=== PATIENT | male | born 1960 | race Caucasian/White ===

== ENCOUNTER 2016-08-18 19:43 | Inpatient (IN) ==
[2016-08-18] MEDS ORDERED: 0.9 % Sodium Chloride 1,000 ML IV ONE (22:17)
[2016-08-18] MEDS ORDERED: Vancomycin 1,000 MG in D5% in Water 250 ML IVPB ONE (22:18)
[2016-08-18 22:41] LABS: Basophils # 0.1 K/mcL (0.0-0.2); Basophils % 1.1 %; Eosinophils # 0.3 K/mcL (0.0-0.6); Eosinophils % 4.8 %; Hematocrit 40.7 % (37.5-50.1); Hemoglobin 13.6 g/dL (12.9-16.9); Immature Granulocytes % 0.2 % (0-4); Lymphocytes # 2.2 K/mcL (0.6-4.6); Mean Corpuscular HGB Conc 33.4 g/dL (31.6-35.5); Mean Corpuscular Hemoglobin 28.3 pg (28.0-33.3); Mean Corpuscular Volume 84.6 fL (83.0-100.0); Mean Platelet Volume 12.5 fL (9.4-12.4); Monocytes # 0.6 K/mcL (0.0-1.3); Monocytes % 9.7 %; Neutrophils # 2.6 K/mcL (1.6-8.9); Platelet Count 162 K/mcL (140-400); Red Blood Count 4.81 M/mcL (4.19-5.50); Segmented Neutrophils % 46.2 %
[2016-08-18 22:53] LABS: BUN/Creatinine Ratio 30 (6-26); Blood Urea Nitrogen 26 mg/dL (8-26); Calcium 9.5 mg/dL (8.6-10.8); Carbon Dioxide 19 mEq/L (19-29); Chloride 103 mEq/L (98-109); Glucose 252 mg/dL (70-99); Osmolality,Calculated 293 (280-300); Potassium 4.7 mEq/L (3.5-4.5); Sodium 135 mEq/L (136-145); eGFR For African Americans > 60 (> 60); eGFR For Non-African Americans > 60 (> 60)
--- NOTE | 2016-08-18 23:05 | Emergency Department Note ---
Disposition Clinical Impression: Hyperglycemia, Gangrene Disposition: Admitted As Inpatient Condition: Fair Referrals: Eric Feliciano CNP [Primary Care Provider] - Forms: ED Satisfaction Letter General Adult HPI - General Chief complaint: ED Recheck/Abnormal Lab/Rx Stated complaint: sent by Dr. Potts Time Seen by Provider: 08/18/16 20:26 Source: patient Limitations: no limitations Nursing Notes Reviewed: Yes Vital Signs Reviewed: Yes - History of Present Illness HPI Narrative: Patient states he was called by Dr. Jamison around 5:30 and told to go to the emergency room for admission secondary to his gangrenous left middle digit as well as elevated glucose. Patient has undergone multiple visits to multiple emergency departments over the course of his initial injury along with progression of disease. Patient initially saw Dr. Jamison at the beginning of August where he had some debridement of his wound done. The goal has been to try to salvage as much of the finger as possible. Patient's finger continues to decompensate. Patient was supposed to get possible surgery however she has been unable to get control of his blood sugars. Patient has been prescribed metformin and injectable insulin without resolution. At this point the patient' s finger has gone from salvageable to needing amputation. Dr. Jamison wants to perform the same dictation sooner rather than later and believes admission for uncontrolled hyperglycemia is necessary as well as admission for gangrene and need for surgery. Patient has no other current complaints at this time. Patient states symptoms have worsened over the last several days but is relatively stable today compared to yesterday. Patient's diabetic history extends back to 2000 where he was told he was a diabetic but lost 80 pounds and no longer required medications or treatments. Patient had another episode proximally 5 years ago related to an injury that allowed him to not do physical labor and he began eating more causing elevated sugars. Other than this the patient has not had issues. Initial injury came all working with his hands in July. Patient was given outpatient antibiotics which initially prompted resolution until prior to New Year's when symptoms acutely began worsening. This is blood in progression to the point that of today where his left digit is acutely swollen with mild erythema and necrotic middle and distal phalanges on the palmar side. Pain Scale: 2 - Related Data Home Medications Medication Instructions Recorded Confirmed Atorvastatin Calcium [Lipitor] 20 mg PO DAILY 08/18/16 08/18/16 Cephalexin [Keflex] 500 mg PO QID 08/18/16 08/18/16 Insulin DETEMIR [Levemir Flextouch] 10 unit SQ HS 08/18/16 08/18/16 Lisinopril [Zestril] 5 mg PO DAILY 08/18/16 08/18/16 Metformin HCl [Glucophage] 1,000 mg PO BID 08/18/16 08/18/16 Sulfamethoxazole/Trimeth DS 2 each PO BID 08/18/16 08/18/16 [Bactrim DS] Allergies Allergy/AdvReac Type Severity Reaction Status Date / Time No Known Allergies Allergy Verified 08/18/16 20:01 All systems ED: reviewed and negative except as stated. Constitutional: Denies: fever, chills Eyes: Denies: eye pain ENT ED: Denies: ear pain Cardiovascular: Denies: chest pain Respiratory: Denies: cough, dyspnea Gastrointestinal: Denies: abdominal pain Genitourinary: Denies: urgency, dysuria Musculoskeletal: Reports: joint swelling Integumentary: Reports: lesions. Denies: rash Neurological: Denies: headache Psychiatric: Denies: anxiety, depression Endocrine: Denies: fatigue Hematological/Lymphatic: Denies: easy bleeding Allergic/Immunologic: Denies: facial swelling Past Medical History - Past Medical History Medical history: Reports: diabetes, kidney stones Psychiatric history: Reports: no psych history - Social History Smoking Status: Never smoker Smokeless Tobacco Status: No Alcohol use: Reports: none Drug use: Reports: none Physical Exam - General Limitations: no limitations General appearance: alert, in no apparent distress - Head Head exam: atraumatic, normocephalic - Eye Eye exam: Present: normal appearance - ENT ENT exam: normal exam, normal oropharynx - Neck Neck exam: Present: normal inspection - Chest Chest inspection: Present: normal inspection - Respiratory Respiratory exam: Present: normal lung sounds bilaterally. Absent: respiratory distress - Cardiovascular Cardiovascular exam: Present: regular rate, normal rhythm - Abdominal Exam Abdominal exam: Present: soft, Non-Tender - Extremities Exam Extremities exam: Present: other (Left hand with swelling of the third digit associated with mild erythema and tenderness to palpation over the MCP and necrosis of the middle and distal palmar aspect.) - Back Exam Back exam: Present: normal inspection - Neurological Exam Neurological exam: Present: alert, oriented X3 - Psychiatric Psychiatric exam: Present: normal affect, normal mood Course - Consultations Consultation #1: Discussed with Dr. Jamison. Patient has failed multiple attempts at outpatient control of diabetes with worsening of his left third digit likely requiring a medication at this point. Consultation #2: Discussed with hospitalist. Dr. Cook. Requests 10 units of subcutaneous insulin as well as x-ray of the left hand prior to admission. Patient accepted for admission. Vital Signs Temperature 98.5 F 08/18/16 20:01 Pulse Rate 112 08/18/16 20:01 Respiratory Rate 18 08/18/16 20:01 Blood Pressure 119/77 08/18/16 20:01 O2 Sat by Pulse Oximetry 98 08/18/16 20:01 Temperature 98.5 F 08/18/16 20:01 Pulse Rate 112 08/18/16 20:01 Respiratory Rate 18 08/18/16 20:01 Blood Pressure 119/77 08/18/16 20:01 O2 Sat by Pulse Oximetry 98 08/18/16 20:01 Oxygen Delivery Oxygen Delivery Room Air Medical Decision Making - Medical Records Medical records reviewed: Yes I reviewed the patient's medical records. - Lab Data Lab results reviewed: Yes I reviewed the patient's lab results. Result diagrams: 08/18/16 22:30 08/18/16 22:30 Lab Results 08/18/16 08/18/16 08/18/16 Range/Units 20:06 21:59 22:30 WBC 5.7 (4.3-11.1) K/mcL RBC 4.81 (4.19-5.50) M/mcL Hgb 13.6 (12.9-16.9) g/dL Hct 40.7 (37.5-50.1) % MCV 84.6 (83.0-100.0) fL MCH 28.3 (28.0-33.3) pg MCHC 33.4 (31.6-35.5) g/dL RDW 13.0 (11.5-14.5) % Plt Count 162 (140-400) K/mcL MPV 12.5 H (9.4-12.4) fL Immature Gran % 0.2 (0-4) % Seg Neutrophils % 46.2 % Lymphocytes % 38.0 % Monocytes % 9.7 % Eosinophils % 4.8 % Basophils % 1.1 % Neutrophils # 2.6 (1.6-8.9) K/mcL Lymphocytes # 2.2 (0.6-4.6) K/mcL Monocytes # 0.6 (0.0-1.3) K/mcL Eosinophils # 0.3 (0.0-0.6) K/mcL Basophils # 0.1 (0.0-0.2) K/mcL Sodium (136-145) mEq/L Potassium (3.5-4.5) mEq/L Chloride (98-109) mEq/L Carbon Dioxide (19-29) mEq/L BUN (8-26) mg/dL Creatinine (0.72-1.25) mg/dL Est GFR ( Amer) (> 60) Est GFR (Non-Af Amer) (> 60) BUN/Creatinine Ratio (6-26) Glucose (70-99) mg/dL POC Glucose 242 H 226 H (58-89) Calculated Osmolality (280-300) Calcium (8.6-10.8) mg/dL 08/18/16 Range/Units 22:30 WBC (4.3-11.1) K/mcL RBC (4.19-5.50) M/mcL Hgb (12.9-16.9) g/dL Hct (37.5-50.1) % MCV (83.0-100.0) fL MCH (28.0-33.3) pg MCHC (31.6-35.5) g/dL RDW (11.5-14.5) % Plt Count (140-400) K/mcL MPV (9.4-12.4) fL Immature Gran % (0-4) % Seg Neutrophils % % Lymphocytes % % Monocytes % % Eosinophils % % Basophils % % Neutrophils # (1.6-8.9) K/mcL Lymphocytes # (0.6-4.6) K/mcL Monocytes # (0.0-1.3) K/mcL Eosinophils # (0.0-0.6) K/mcL Basophils # (0.0-0.2) K/mcL Sodium 135 L (136-145) mEq/L Potassium 4.7 H (3.5-4.5) mEq/L Chloride 103 (98-109) mEq/L Carbon Dioxide 19 (19-29) mEq/L BUN 26 (8-26) mg/dL Creatinine 0.88 (0.72-1.25) mg/dL Est GFR ( Amer) > 60 (> 60) Est GFR (Non-Af Amer) > 60 (> 60) BUN/Creatinine Ratio 30 H (6-26) Glucose 252 H (70-99) mg/dL POC Glucose (58-89) Calculated Osmolality 293 (280-300) Calcium 9.5 (8.6-10.8) mg/dL - Radiology Data Radiology results reviewed: Yes I reviewed the patient's radiology results. - EKG Data EKG #1 EKG attestation: Yes I reviewed and interpreted this EKG. EKG results narrative: EKG shows sinus tachycardia with ventricular rate of 100 bpm. [place] interval 136. QRS 98. QTC 401. Patient has no significant ST elevations or depressions. Nonspecific T-wave changes. No acute changes from previous EKG of 08/12/16.
--- NOTE | 2016-08-18 23:27 | Emergency Department Note ---
Disposition Clinical Impression: Hyperglycemia, Gangrene Disposition: Admitted As Inpatient Condition: Fair Referrals: Eric Feliciano CNP [Primary Care Provider] - Forms: ED Satisfaction Letter General Adult HPI - General Chief complaint: ED Recheck/Abnormal Lab/Rx Stated complaint: sent by Dr. Potts Time Seen by Provider: 08/18/16 20:26 Source: patient Limitations: no limitations - History of Present Illness Pain Scale: 2 - Related Data Home Medications Medication Instructions Recorded Confirmed Atorvastatin Calcium [Lipitor] 20 mg PO DAILY 08/18/16 08/18/16 Cephalexin [Keflex] 500 mg PO QID 08/18/16 08/18/16 Insulin DETEMIR [Levemir Flextouch] 10 unit SQ HS 08/18/16 08/18/16 Lisinopril [Zestril] 5 mg PO DAILY 08/18/16 08/18/16 Metformin HCl [Glucophage] 1,000 mg PO BID 08/18/16 08/18/16 Sulfamethoxazole/Trimeth DS 2 each PO BID 08/18/16 08/18/16 [Bactrim DS] Allergies Allergy/AdvReac Type Severity Reaction Status Date / Time No Known Allergies Allergy Verified 08/18/16 20:01 Constitutional: Denies: fever, chills Eyes: Denies: eye pain ENT ED: Denies: ear pain Cardiovascular: Denies: chest pain Respiratory: Denies: cough, dyspnea Gastrointestinal: Denies: abdominal pain Genitourinary: Denies: urgency, dysuria Musculoskeletal: Reports: joint swelling Integumentary: Reports: lesions. Denies: rash Neurological: Denies: headache Psychiatric: Denies: anxiety, depression Endocrine: Denies: fatigue Hematological/Lymphatic: Denies: easy bleeding Allergic/Immunologic: Denies: facial swelling Past Medical History - Past Medical History Medical history: Reports: diabetes, kidney stones Psychiatric history: Reports: no psych history - Social History Smoking Status: Never smoker Smokeless Tobacco Status: No Alcohol use: Reports: none Drug use: Reports: none Physical Exam - General Limitations: no limitations General appearance: alert, in no apparent distress Course - Reevaluation(s) Reevaluation #1: I saw the patient with the resident, Dr. Rust. The patient was sent in by his hand surgeon because the patient has gangrene of his finger and he has diabetes is not under control. This patient is going to require amputation of that finger. I spoke with Dr. Potts and he wants patient admitted to the hospitalist service for management of the diabetes in order to prepare the patient for surgery. Patient is nontoxic and afebrile. The long finger of that left hand looks pretty bad. We will arrange for the patient to be admitted. Time: 23:27 Vital Signs Temperature 98.5 F 08/18/16 20:01 Pulse Rate 112 08/18/16 20:01 Respiratory Rate 18 08/18/16 20:01 Blood Pressure 119/77 08/18/16 20:01 O2 Sat by Pulse Oximetry 98 08/18/16 20:01 Temperature 98.5 F 08/18/16 20:01 Pulse Rate 112 08/18/16 20:01 Respiratory Rate 18 08/18/16 20:01 Blood Pressure 119/77 08/18/16 20:01 O2 Sat by Pulse Oximetry 98 08/18/16 20:01 Oxygen Delivery Oxygen Delivery Room Air Medical Decision Making - Lab Data Result diagrams: 08/18/16 22:30 08/18/16 22:30 Lab Results 08/18/16 08/18/16 08/18/16 Range/Units 20:06 21:59 22:30 WBC 5.7 (4.3-11.1) K/mcL RBC 4.81 (4.19-5.50) M/mcL Hgb 13.6 (12.9-16.9) g/dL Hct 40.7 (37.5-50.1) % MCV 84.6 (83.0-100.0) fL MCH 28.3 (28.0-33.3) pg MCHC 33.4 (31.6-35.5) g/dL RDW 13.0 (11.5-14.5) % Plt Count 162 (140-400) K/mcL MPV 12.5 H (9.4-12.4) fL Immature Gran % 0.2 (0-4) % Seg Neutrophils % 46.2 % Lymphocytes % 38.0 % Monocytes % 9.7 % Eosinophils % 4.8 % Basophils % 1.1 % Neutrophils # 2.6 (1.6-8.9) K/mcL Lymphocytes # 2.2 (0.6-4.6) K/mcL Monocytes # 0.6 (0.0-1.3) K/mcL Eosinophils # 0.3 (0.0-0.6) K/mcL Basophils # 0.1 (0.0-0.2) K/mcL Sodium (136-145) mEq/L Potassium (3.5-4.5) mEq/L Chloride (98-109) mEq/L Carbon Dioxide (19-29) mEq/L BUN (8-26) mg/dL Creatinine (0.72-1.25) mg/dL Est GFR ( Amer) (> 60) Est GFR (Non-Af Amer) (> 60) BUN/Creatinine Ratio (6-26) Glucose (70-99) mg/dL POC Glucose 242 H 226 H (58-89) Calculated Osmolality (280-300) Calcium (8.6-10.8) mg/dL 08/18/16 Range/Units 22:30 WBC (4.3-11.1) K/mcL RBC (4.19-5.50) M/mcL Hgb (12.9-16.9) g/dL Hct (37.5-50.1) % MCV (83.0-100.0) fL MCH (28.0-33.3) pg MCHC (31.6-35.5) g/dL RDW (11.5-14.5) % Plt Count (140-400) K/mcL MPV (9.4-12.4) fL Immature Gran % (0-4) % Seg Neutrophils % % Lymphocytes % % Monocytes % % Eosinophils % % Basophils % % Neutrophils # (1.6-8.9) K/mcL Lymphocytes # (0.6-4.6) K/mcL Monocytes # (0.0-1.3) K/mcL Eosinophils # (0.0-0.6) K/mcL Basophils # (0.0-0.2) K/mcL Sodium 135 L (136-145) mEq/L Potassium 4.7 H (3.5-4.5) mEq/L Chloride 103 (98-109) mEq/L Carbon Dioxide 19 (19-29) mEq/L BUN 26 (8-26) mg/dL Creatinine 0.88 (0.72-1.25) mg/dL Est GFR ( Amer) > 60 (> 60) Est GFR (Non-Af Amer) > 60 (> 60) BUN/Creatinine Ratio 30 H (6-26) Glucose 252 H (70-99) mg/dL POC Glucose (58-89) Calculated Osmolality 293 (280-300) Calcium 9.5 (8.6-10.8) mg/dL Attestation Statement - Attestation Attestation: I, Dr. Odom, examined this patient [id number] and my medical decision- making was reviewed with Dr. Rust, Resident Physician. I agree with the documented findings, disposition and treatment plan as described except to the extent set forth below. Please see my progress notes for details.
[2016-08-19] MEDS ORDERED: Insulin Regular, Human 100 UNIT/ML SQ ONE (00:36)
[2016-08-19] MEDS ORDERED: Ondansetron 4 MG/2 ML VIAL IVP PRN ×2 (02:59→17:45)
[2016-08-19] MEDS ORDERED: *HR* OxyCODONE Immed Rel 5 MG TABLET PO PRN ×2 (02:59→17:45)
[2016-08-19] MEDS ORDERED: Naloxone 0.4 MG/ML INJ IVP PRN ×2 (02:59→17:45)
[2016-08-19] MEDS ORDERED: D5% in Water 1,000 ML IV PRN ×2 (03:02→17:45)
[2016-08-19] MEDS ORDERED: Dextrose Gel 15 GM PO PRN ×4 (03:02→17:45)
[2016-08-19] MEDS ORDERED: *HR* Dextrose 50 % in Water (Syg) 50 ML SYRINGE IVP PRN ×2 (03:02→17:45)
--- NOTE | 2016-08-19 03:11 | Internal Med History&Physical ---
Date of Encounter: 08/19/16 Time of Encounter: 02:00 Assessment and Plan (1) Uncontrolled diabetes mellitus Current visit: Yes Status: Acute -last HbA1C on 08/11/16 noted to be 13.5 -recently started on Levemir 10units sq HS and Metformin -will hold oral antihyperglycemic agents at this time -continue Levemir, and start low dose correctional insulin sliding scale as needed -will adjust Levemir dosing as per the need of correctional insulin -f/u consultation with adult educator -continue to monitor fingerstick and blood glucose Qualifiers: Diabetes mellitus type: type 2 Diabetes mellitus complication status: with unspecified complications Diabetes mellitus terminal supervisor insulin use: without terminal supervisor use Qualified Code(s): E11.8 - Type 2 diabetes mellitus with unspecified complications; E11.65 - Type 2 diabetes mellitus with hyperglycemia (2) Osteomyelitis Current visit: Yes Status: Acute -Hand Xray consistent with concern for Osteomyelitis of the distal and middle phalanges of the 3rd digit of left hand -continue IV abx -follow up surgical consultation with Dr. Potts (called by ER physician) Qualifiers: Osteomyelitis location: hand Laterality: left Chronicity: unspecified Qualified Code(s): M86.9 - Osteomyelitis, unspecified (3) Hypertension Current visit: Yes Status: Acute BP within acceptable range continue home medications Qualifiers: Hypertension type: essential hypertension Qualified Code(s): I10 - Essential (primary) hypertension (4) DVT prophylaxis Current visit: Yes Status: Acute Heparin SQ Internal Medicine - H&P: HPI Chief complaint: worsening left middle finger ulceration sent by Primary physician Admitted From: Home Plans for Post Hospital Care: Home History of present illness: Mr. Hwang is a 56 year old male with past medical history of hypertension and uncontrolled diabetes who was sent to the ER by primary physician for evaluation of worsening left middle finger ulceration. 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 He reports of following with his primary [employer] who noted him to be consistently hyperglycemic and was noted to have hemoglobin A1c of 13.5 and was recently started on metformin and insulin. He was further transferred to the ER for better control of his diabetes along with surgical consultation with Dr. Potts for possible surgical resection of the left middle finger. Upon arrival to the ER patient is asymptomatic and is noted to have hyperglycemia. He reports starting his insulin and metformin regimen few days ago. He denies any pain in the finger however it appears to be necrotic. At this time he is resting comfortably in bed denies any pain, headache, chest pain, shortness of breath, abdominal pain, nausea, vomiting, fever, or chills. Past Med Surg Social Fam HX - Past Medical History Medical history: diabetes, kidney stones Psychiatric history: no psych history - Social History Smoking Status: Former smoker Smokeless Tobacco Status: No Alcohol use: none Drug use: none - Family History Father Age: 88 Living Status: Still Living Hx Family Endocrine Disorder: Yes (Diabetes) Internal Medicine - H&P: Meds Atorvastatin Calcium [Lipitor] 20 mg PO DAILY 08/18/16 [History] Cephalexin [Keflex] 500 mg PO QID 08/18/16 [History] Insulin DETEMIR [Levemir Flextouch] 10 unit SQ HS 08/18/16 [History] Lisinopril [Zestril] 5 mg PO DAILY 08/18/16 [History] Metformin HCl [Glucophage] 1,000 mg PO BID 08/18/16 [History] Sulfamethoxazole/Trimeth DS [Bactrim DS] 2 each PO BID 08/18/16 [History] Allergies No Known Allergies Allergy (Verified 08/18/16 20:01) All Systems PM: A 10-system review of systems was performed and is negative for pertinent findings except as documented above in the HPI. - Constitutional Constitutional: as per HPI - Constitutional Vitals: Temp Pulse Resp BP Pulse Ox 97.7 F 99 16 135/92 98 08/19/16 01:33 08/19/16 01:33 08/19/16 01:33 08/19/16 01:33 08/19/16 01:33 General appearance: Present: cooperative, A&O X 3, pleasant, no acute distress, obese, answers questions appropriately - Head Head exam: Present: atraumatic, normocephalic - Eye Eye exam: Present: PERRL, conjuntiva pink, sclera anicteric - Respiratory Respiratory exam: Present: CTAB. Absent: accessory muscle use, rales, rhonchi, wheezes - Cardiovascular Cardiovascular exam: Present: RRR, +S1, +S2. Absent: diastolic murmur, gallop, rubs, systolic murmur - GI/Abdominal GI/Abdominal exam: Present: normal bowel sounds, soft, no peritoneal signs. Absent: distended, tenderness - Extremities Exam Extremities exam: Present: tenderness (mild tenderness to palpation of the left middle finger, Necrotic distal left middle finger ), warm, radial pulses palpable and symetrical. Absent: calf tenderness, cyanotic, pedal edema Internal Med - H&P Results - Labs CBC & Chem 7: 08/18/16 22:30 08/18/16 22:30
[2016-08-19] MEDS ORDERED: Insulin DETEMIR 100 UNIT/ML X5UNITS SQ SCH ×2 (03:15→21:00)
[2016-08-19 04:22] LABS: Basophils # 0.1 K/mcL (0.0-0.2); Basophils % 0.9 %; Eosinophils # 0.3 K/mcL (0.0-0.6); Eosinophils % 5.5 %; Hematocrit 36.8 % (37.5-50.1); Hemoglobin 12.4 g/dL (12.9-16.9); Immature Granulocytes % 0.2 % (0-4); Lymphocytes # 2.5 K/mcL (0.6-4.6); Lymphocytes % 47.3 %; Mean Corpuscular HGB Conc 33.7 g/dL (31.6-35.5); Mean Corpuscular Hemoglobin 28.7 pg (28.0-33.3); Mean Corpuscular Volume 85.2 fL (83.0-100.0); Mean Platelet Volume 12.1 fL (9.4-12.4); Monocytes # 0.5 K/mcL (0.0-1.3); Monocytes % 9.5 %; Neutrophils # 1.9 K/mcL (1.6-8.9); Platelet Count 136 K/mcL (140-400); Red Blood Count 4.32 M/mcL (4.19-5.50); Segmented Neutrophils % 36.6 %
[2016-08-19 04:36] LABS: BUN/Creatinine Ratio 27 (6-26); Blood Urea Nitrogen 21 mg/dL (8-26); Carbon Dioxide 22 mEq/L (19-29); Chloride 106 mEq/L (98-109); Chol/HDL Ratio 5.3 (0-4.9); Glucose 135 mg/dL (70-99); HDL Cholesterol 36 mg/dL (40-59); LDL Cholesterol,Calculated 122 mg/dL (0-99); Magnesium 1.6 mg/dL (1.6-2.6); Osmolality,Calculated 291 (280-300); Phosphorous 3.4 mg/dL (2.3-4.7); Potassium 3.8 mEq/L (3.5-4.5); Sodium 138 mEq/L (136-145); Triglycerides 160 mg/dL (< 150); eGFR For African Americans > 60 (> 60); eGFR For Non-African Americans > 60 (> 60)
[2016-08-19 04:44] LABS: Cholesterol 190 mg/dL (< 200)
[2016-08-19] MEDS ORDERED: Vancomycin 1,000 MG in D5% in Water 250 ML IVPB SCH (06:00)
[2016-08-19] MEDS: *HR* Heparin 5,000 UNIT/ML VIAL SQ SCH ×3 (06:54→21:27)
[2016-08-19] MEDS ORDERED: Piperacillin/Tazobactam 3.375 GM in D5% in Water (Mini-Bag+) 100 ML IVPB SCH (08:00)
[2016-08-19] MEDS: Insulin LISPRO 300 UNITS/3 ML VIAL SQ SCH ×2 (08:14→12:10)
[2016-08-19] MEDS ORDERED: Vancomycin 1,500 MG in D5% in Water 250 ML IVPB SCH (09:00)
--- NOTE | 2016-08-19 09:30 | Orthopedic Consult Note ---
Date of Encounter: 08/19/16 Time of Encounter: 08:30 Assessment and Plan (1) Osteomyelitis Current Visit: Yes Status: Acute Left long finger infection suspicious for osteomyelitis. Plan for surgical irrigation and debridement with probable amputation of the long finger today. NPO. Continue pain control. Continue management of DM. Qualifiers: Osteomyelitis location: hand Laterality: left Chronicity: unspecified Qualified Code(s): M86.9 - Osteomyelitis, unspecified History of Present Illness Chief complaint: left LF infection HPI: Mr. Hwang is a 56 year old male who has had an infection to the left long finger for over a month now. He was initially treated with oral abx with some improvement but has progressively worsened in the last couple weeks. Very little pain to the long finger, mostly numb. No drainage from the incision. Denies any new injuries. He does have uncontrolled DM. Denies any chest pain, SOB, fevers. Past Med Surg Social Fam HX - Past Medical History Medical history: diabetes, kidney stones Psychiatric history: no psych history - Social History Smoking Status: Former smoker Smokeless Tobacco Status: No Alcohol use: none Drug use: none - Family History Father Age: 88 Living Status: Still Living Hx Family Endocrine Disorder: Yes (Diabetes) Medications and Allergies Atorvastatin Calcium [Lipitor] 20 mg PO DAILY 08/18/16 [History] Cephalexin [Keflex] 500 mg PO QID 08/18/16 [History] Insulin DETEMIR [Levemir Flextouch] 10 unit SQ HS 08/18/16 [History] Lisinopril [Zestril] 5 mg PO DAILY 08/18/16 [History] Metformin HCl [Glucophage] 1,000 mg PO BID 08/18/16 [History] Sulfamethoxazole/Trimeth DS [Bactrim DS] 2 each PO BID 08/18/16 [History] Allergies No Known Allergies Allergy (Verified 08/18/16 20:01) All Systems Reviewed: A 10-system review of systems was performed and is negative for pertinent findings except as documented above in the HPI. - Constitutional Constitutional: as per HPI - Cardiovascular Cardiovascular: as per HPI - Respiratory Respiratory: as per HPI - Musculoskeletal Musculoskeletal: as per HPI Physical Exam - Constitutional Vitals: Temp Pulse Resp BP Pulse Ox 97.8 F 89 16 107/68 95 08/19/16 07:21 08/19/16 07:21 08/19/16 07:21 08/19/16 07:21 08/19/16 07:21 - Wrist & Hand left Location of pain: long finger (no pain, black eschar noted to to volar aspect of left LF length of proximal phalanx, surrounding erythema, no drainage, limited ROM of LF, no sensation to distal LF) Results - Labs Result Diagrams: 08/19/16 03:53 08/19/16 03:53 Labs: Abnormal lab results Hgb 12.4 g/dL (12.9-16.9) L 08/19/16 03:53 Hct 36.8 % (37.5-50.1) L 08/19/16 03:53 Plt Count 136 K/mcL (140-400) L 08/19/16 03:53 BUN/Creatinine Ratio 27 (6-26) H 08/19/16 03:53 Glucose 135 mg/dL (70-99) H 08/19/16 03:53 POC Glucose 120 (58-89) H 08/19/16 07:52 Triglycerides 160 mg/dL (< 150) H 08/19/16 03:53 LDL Cholesterol, Calc 122 mg/dL (0-99) H 08/19/16 03:53 VLDL Cholesterol, Calc 32 mg/dL (< 31) H 08/19/16 03:53 HDL Cholesterol 36 mg/dL (40-59) L 08/19/16 03:53 Cholesterol/HDL Ratio 5.3 (0-4.9) H 08/19/16 03:53 H & H 08/19/16 Range/Units 03:53 Hgb 12.4 L (12.9-16.9) g/dL Hct 36.8 L (37.5-50.1) % All other labs normal. - Diagnostic results Wrist/Hand x-ray: report reviewed, image reviewed Consult Discharge Plan - Plan Referrals: Eric Feliciano HELP DESK OPERATOR [Primary Care Provider] - - Attending Attestation Case and plan of care discussed with supervising physician who was available for all aspects of care.
--- NOTE | 2016-08-19 09:58 | Electrocardiograph Report ---
[facility] Test Date: 2016-08-18 Pat Name: Madan Hwang Department: 104 Room: [facility] Gender: M Clay Caster: [facility] : 1960 Requested By: Daryl Rust Order Number: [id number] Reading MD: Rika Em Measurements Intervals [place] Rate: 100 P: 9 FL: 136 QRS: -7 QRSD: 98 T: 18 QT: 344 QTc: 401 Interpretive Statements SINUS TACHYCARDIA POSSIBLE ANTERIOR MYOCARDIAL INFARCTION, OF INDETERMINATE AGE Electronically Signed On 08-19-16 09:56:51 EST by Rika Em
[2016-08-19] MEDS ORDERED: *HR* Succinylcholine 200 MG/10 ML VIAL IVP ONE (15:30)
[2016-08-19] MEDS ORDERED: *HR* FentaNYL (PF) 100 MCG/2 ML VIAL ONE (15:30)
[2016-08-19] MEDS ORDERED: *HR* Midazolam HCl 2 MG/2 ML VIAL ONE (15:30)
[2016-08-19] MEDS ORDERED: Lidocaine -MPF 2% 2 ML VIAL ONE (15:30)
[2016-08-19] MEDS ORDERED: Ondansetron 4 MG/2 ML VIAL ONE (15:30)
[2016-08-19] MEDS ORDERED: *HR* Propofol 200 MG/20 ML VIAL IVP ONE (15:30)
[2016-08-19] MEDS ORDERED: Lidocaine -MPF 4% 5 ML AMPUL ONE (15:30)
[2016-08-19] MEDS ORDERED: Dexamethasone 4 MG/ML VIAL ONE (15:30)
--- NOTE | 2016-08-19 15:41 | Anesthesia Evaluation PreOp ---
Date of Encounter: 08/19/16 Time of Encounter: 15:39 - Past History Planned Operation: I&D Left Long Finger Cardiac History: HTN, Hyperlipidemia Pulmonary History: Former smoker PROGRAM HOST History: Denies Any Significant HX Other Medical History: Diabetes Type II Anesthesia History: No Prior Anesthetic Complications, Past Anesthesia Alcohol Use: none Drug use: none Medications and Allergies Atorvastatin Calcium [Lipitor] 20 mg PO DAILY 08/18/16 [History] Cephalexin [Keflex] 500 mg PO QID 08/18/16 [History] Insulin DETEMIR [Levemir Flextouch] 10 unit SQ HS 08/18/16 [History] Lisinopril [Zestril] 5 mg PO DAILY 08/18/16 [History] Metformin HCl [Glucophage] 1,000 mg PO BID 08/18/16 [History] Sulfamethoxazole/Trimeth DS [Bactrim DS] 2 each PO BID 08/18/16 [History] Allergies No Known Allergies Allergy (Verified 08/18/16 20:01) - Meds/Allergy Pre-op Review Medications Reviewed: Yes Allergies Reviewed: Yes Beta Blockers on Current Med List: No Anesthesia Results - Labs 08/19/16 03:53 08/19/16 03:53 - Imaging EKG: image reviewed ([facility]) Anesthesia Exam O2 Sat Height 1.88 m Weight 100.698 kg O2 Sat by Pulse Oximetry 98 O2 Sat by Pulse Oximetry 95 O2 Sat by Pulse Oximetry 96 O2 Sat by Pulse Oximetry 98 O2 Sat by Pulse Oximetry 98 Vital Signs Temp Pulse Resp BP Pulse Ox 98.5 F 112 18 119/77 98 08/18/16 20:01 08/18/16 20:01 08/18/16 20:01 08/18/16 20:01 08/18/16 20:01 Vital Signs/O2 Sat, Most Current Temp Pulse Resp BP Pulse Ox 97.7 F 94 18 100/68 98 08/19/16 11:04 08/19/16 11:04 08/19/16 11:04 08/19/16 11:04 08/19/16 11:04 - HEENT Pupil (Motor): Pupils equal, EOMI Mallampati: I Teeth: Missing, Poor dentition Oral Opening: Greater than 3 - PROGRAM HOST LOC: Oriented PROGRAM HOST Motor: Normal RUE, Normal LUE, Normal RLE, Normal LLE, Normal Face PROGRAM HOST Sensory: Normal: RUE, LUE, RLE, LLE, Face - Cardiac Rhythm: Regular Murmur: None JVD: No Carotid Bruit: No - Pulmonary Breath Sounds: bilateral Clear Respiratory Effort: Symmetrical Anesthesia Assess/Plan ASA Score: 3 Modified [place] Scale for Level of Consciousness: Cooperative, oriented, and tranquil Anesthetic Plan: General Autologous Blood: Yes Monitoring Plan: Standard Monitors Recovery Plan: PACU
[2016-08-19] MEDS ORDERED: *HR* Promethazine 25 MG/ML VIAL IVP PRN ×2 (16:17→17:45)
[2016-08-19] MEDS ORDERED: *HR* HYDROmorphone (PF) 1 MG/ML SYRINGE IVP PRN ×2 (16:17→17:45)
--- NOTE | 2016-08-19 17:03 | Internal Med Progress Note ---
Date of Encounter: 08/19/16 Time of Encounter: 09:00 - Assessment and plan (1) Gangrene Current Visit: Yes Status: Acute Assessment and plan: Patient has left hand middle finger gangrene. Hand surgery consult on case and plan for surgery. Continue vancomycin and Zosyn. Patient is at high risk because he has a gangrene need surgical intervention, and he is on vancomycin need close monitoring. (2) Hypertension Current Visit: Yes Status: Acute Assessment and plan: BP is stable, continue home medication. Qualifiers: Hypertension type: essential hypertension Qualified Code(s): I10 - Essential (primary) hypertension (3) Uncontrolled diabetes mellitus Current Visit: Yes Status: Acute Assessment and plan: Patient is not compliant with diabetes medication. Blood sugar is poorly controlled. We will continue basal and sliding scale insulin when patient in the hospital. Qualifiers: Diabetes mellitus type: type 2 Diabetes mellitus complication status: with unspecified complications Diabetes mellitus skilled nursing insulin use: without skilled nursing use Qualified Code(s): E11.8 - Type 2 diabetes mellitus with unspecified complications; E11.65 - Type 2 diabetes mellitus with hyperglycemia (4) DVT prophylaxis Current Visit: Yes Status: Acute Assessment and plan: Hypertension subcutaneously - Subjective Interval history: Patient is a 56-year-old male admitted for left hand made finger gangrene. His past medical history is significant for diabetes, hypertension, kidney stone. Patient was seen and examined. He denies any pain, no fever, vital signs stable. Patient denies nausea vomiting. White count is normal. Hand surgery consult appreciated. Plan for surgery today. Hand x-ray suspect osteomyelitis. Will follow biopsy after surgery. Continue antibiotic treatment. - Constitutional Vitals: Temp Pulse Resp BP Pulse Ox 97.7 F 94 18 100/68 98 08/19/16 11:04 08/19/16 11:04 08/19/16 11:04 08/19/16 11:04 08/19/16 11:04 General appearance: Present: cooperative, A&O X 3, pleasant, no acute distress, obese, answers questions appropriately - Head Head exam: Present: atraumatic, normocephalic - Eye Eye exam: Present: PERRL, conjuntiva pink, sclera anicteric Pupils: Present: PERRL - Neck Neck exam general surgery: Present: supple, trachea midline. Absent: lymphadenopathy - Respiratory Respiratory exam: Present: CTAB. Absent: accessory muscle use, rales, rhonchi, wheezes - Cardiovascular Cardiovascular exam: Present: RRR, +S1, +S2. Absent: diastolic murmur, gallop, rubs, systolic murmur - GI/Abdominal GI/Abdominal exam: Present: normal bowel sounds, soft, no peritoneal signs. Absent: distended, tenderness - Extremities Exam Extremities exam: Present: warm, radial pulses palpable and symetrical. Absent : calf tenderness, cyanotic, pedal edema Additional comments: Left-handed middle finger gangrene with black crust, no bleeding, no discharge. - Neurological Exam Neurological exam: Present: CN II-XII intact, oriented X3, no focal deficits. Absent: pronater drift, facial droop, speech deficit - Skin Skin exam: Present: dry, intact Internal Medicine: Result - Labs CBC & Chem 7: 08/19/16 03:53 08/19/16 03:53 Labs: Short CBC 08/19/16 Range/Units 03:53 WBC 5.3 (4.3-11.1) K/mcL Hgb 12.4 L (12.9-16.9) g/dL Hct 36.8 L (37.5-50.1) % Plt Count 136 L (140-400) K/mcL Neutrophils # 1.9 (1.6-8.9) K/mcL BMP 08/19/16 03:53 Sodium 138 Potassium 3.8 Chloride 106 Carbon Dioxide 22 BUN 21 Creatinine 0.77 Glucose 135 H Calcium 9.0 Consult Discharge Plan - Plan Referrals: Eric Feliciano CNP [Primary Care Provider] -
--- NOTE | 2016-08-19 17:29 | Anesthesia Evaluation Post Op ---
Date of Encounter: 08/19/16 Time of Encounter: 17:25 - Vital Signs Vital Signs: Last Vital Signs Temp 98.4 F 08/19/16 17:00 Pulse 89 08/19/16 17:20 Resp 16 08/19/16 17:20 BP 109/75 08/19/16 17:20 Pulse Ox 98 08/19/16 17:20 - Lungs Lungs: Clear Ascult./Percussion - Airway Airway: Non-obstructed - Cardiovascular Regular Rate - Mental Status Mental Status: Alert & Oriented, Answers Appropriately - Nausea Vomiting Nausea Vomiting: Not Present - Hydration Hydration: Ice chips - Discharge PostOp Status: Transfer Patient to floor Attestation: Patient meets criteria for floor transfer. Alert and communicative.
[2016-08-19] MEDS ORDERED: Insulin LISPRO 300 UNITS/3 ML VIAL SQ SCH ×2 (21:00)
[2016-08-19] MEDS ORDERED: NON-FORMULARY MEDICATION 1 EACH EACH (Insulin Detemir [Levemir Flextouch] 10 UNIT) SQ SCH (21:00)
[2016-08-19] MEDS: Vancomycin 1,500 MG in D5% in Water 250 ML IVPB SCH (21:24)
[2016-08-20] MEDS: Piperacillin/Tazobactam 3.375 GM in D5% in Water (Mini-Bag+) 100 ML IVPB SCH ×4 (01:18→23:21)
[2016-08-20] MEDS: *HR* Heparin 5,000 UNIT/ML VIAL SQ SCH ×3 (05:54→20:48)
[2016-08-20] MEDS: Insulin LISPRO 300 UNITS/3 ML VIAL SQ SCH ×4 (08:54→20:48)
[2016-08-20] MEDS: Vancomycin 1,500 MG in D5% in Water 250 ML IVPB SCH ×2 (08:55→10:19)
[2016-08-20 09:17] LABS: Basophils # 0.1 K/mcL (0.0-0.2); Basophils % 0.8 %; Eosinophils # 0.1 K/mcL (0.0-0.6); Hemoglobin 13.7 g/dL (12.9-16.9); Immature Granulocytes % 0.3 % (0-4); Lymphocytes # 2.4 K/mcL (0.6-4.6); Lymphocytes % 37.4 %; Mean Corpuscular HGB Conc 33.4 g/dL (31.6-35.5); Mean Corpuscular Hemoglobin 28.6 pg (28.0-33.3); Mean Corpuscular Volume 85.6 fL (83.0-100.0); Mean Platelet Volume 12.8 fL (9.4-12.4); Monocytes # 0.5 K/mcL (0.0-1.3); Monocytes % 7.7 %; Neutrophils # 3.3 K/mcL (1.6-8.9); Platelet Count 173 K/mcL (140-400); Red Blood Count 4.79 M/mcL (4.19-5.50); Red Cell Distribution Width 13.2 % (11.5-14.5); Segmented Neutrophils % 51.8 %
[2016-08-20 09:30] LABS: BUN/Creatinine Ratio 19 (6-26); Blood Urea Nitrogen 15 mg/dL (8-26); Calcium 9.3 mg/dL (8.6-10.8); Carbon Dioxide 21 mEq/L (19-29); Chloride 106 mEq/L (98-109); Glucose 194 mg/dL (70-99); Osmolality,Calculated 292 (280-300); Potassium 4.3 mEq/L (3.5-4.5); Sodium 138 mEq/L (136-145); eGFR For African Americans > 60 (> 60); eGFR For Non-African Americans > 60 (> 60)
--- NOTE | 2016-08-20 09:34 | Orthopedics Progress Note ---
Date of Encounter: 08/20/16 Time of Encounter: 09:31 Subjective Interval history: S: No complaints. Pain controlled. O: Afeb, VSS Long finger evaluated on left Drain pulled Wound is clean, without purulent drainage NV intact otherwise A: Post partial left long finger amputation due to infection P: Daily dressing changes and soapy washes Continue antiobiotics - cultures pending Will observe through the weekend Anticipate home Monday if does well over the weekend. Objective Vital signs: Vital Signs Temp Pulse Resp BP Pulse Ox 08/20/16 08:48 96 08/20/16 06:45 98.4 F 104 18 114/68 96 08/20/16 05:48 98.6 F 100 18 110/63 96 08/20/16 00:14 97.7 F 111 18 127/78 95 08/19/16 21:33 98.2 F 111 138/85 98 08/19/16 19:53 97.9 F 101 18 127/75 96 08/19/16 19:11 97.6 F 102 16 132/85 94 L 08/19/16 18:33 97.1 F L 93 16 153/91 99 08/19/16 17:49 97.6 F 93 16 123/83 99 08/19/16 17:30 97.7 F 92 16 122/83 100 08/19/16 17:20 89 16 109/75 98 08/19/16 17:10 90 18 107/71 97 08/19/16 17:00 98.4 F 88 12 67/49 100 08/19/16 11:04 97.7 F 94 18 100/68 98 Intake and Output 08/19/16 08/20/16 08/20/16 23:59 07:59 15:59 Intake Total 600 / 600 525 / 525 360 / 360 Output Total 5 / 5 0 / 0 Balance 595 / 595 525 / 525 360 / 360 Intake: IV Fluids 250 / 250 100 / 100 Zosyn 3.375 GM In 100 / 100 Dextrose 5% (Minibag+) 100 ML 100 ML @ 25 mls/hr IVPB Q8HR JOSEPH Rx#: [id number] Vancocin 1,500 MG In 250 / 250 Dextrose 5% 250 ML @ 166. 667 mls/hr IVPB Q12H JOSEPH Rx#:[id number] Oral 350 / 350 425 / 425 360 / 360 Output: Urine 0 / 0 Estimated Blood Loss 5 / 5 Other: Meal Breakfast Percent of Meal Consumed 100% # Voids 1 1 Blood Glucose* 283 185 - Labs CBC & BMP: 08/20/16 08:46 08/19/16 03:53 Labs: Abnormal lab results MPV 12.8 fL (9.4-12.4) H 08/20/16 08:46 BUN/Creatinine Ratio 27 (6-26) H 08/19/16 03:53 Glucose 135 mg/dL (70-99) H 08/19/16 03:53 POC Glucose 283 (58-89) H 08/19/16 20:30 Triglycerides 160 mg/dL (< 150) H 08/19/16 03:53 LDL Cholesterol, Calc 122 mg/dL (0-99) H 08/19/16 03:53 VLDL Cholesterol, Calc 32 mg/dL (< 31) H 08/19/16 03:53 HDL Cholesterol 36 mg/dL (40-59) L 08/19/16 03:53 Cholesterol/HDL Ratio 5.3 (0-4.9) H 08/19/16 03:53 - VTE Documentation of Mechanical Device: Venous foot pump, device Consult Discharge Plan - Plan Referrals: Eric Feliciano, NUTRITION TEACHER [Primary Care Provider] -
[2016-08-20 10:18] LABS: Hemoglobin A1C 13.1 %
--- NOTE | 2016-08-20 17:33 | Internal Med Progress Note ---
Date of Encounter: 08/20/16 Time of Encounter: 09:00 - Assessment and plan (1) Gangrene Current Visit: Yes Status: Acute Assessment and plan: Patient has left hand middle finger gangrene. Hand surgery consult on case and plan for surgery. Continue vancomycin and Zosyn. Patient is at high risk because he has a gangrene need surgical intervention, and he is on vancomycin need close monitoring. (2) Hypertension Current Visit: Yes Status: Acute Assessment and plan: BP is stable, continue home medication. Qualifiers: Hypertension type: essential hypertension Qualified Code(s): I10 - Essential (primary) hypertension (3) Uncontrolled diabetes mellitus Current Visit: Yes Status: Acute Assessment and plan: Patient is not compliant with diabetes medication. Blood sugar is poorly controlled. We will continue basal and sliding scale insulin when patient in the hospital and adjust dosage to get better control. Qualifiers: Diabetes mellitus type: type 2 Diabetes mellitus complication status: with unspecified complications Diabetes mellitus chcf insulin use: without adjunct faculty for medical terminology use Qualified Code(s): E11.8 - Type 2 diabetes mellitus with unspecified complications; E11.65 - Type 2 diabetes mellitus with hyperglycemia (4) DVT prophylaxis Current Visit: Yes Status: Acute Assessment and plan: Hypertension subcutaneously - Time Spent With Patient Greater than 35 minutes - Subjective Interval history: Patient is a 56-year-old male admitted for left hand mid finger gangrene. His past medical history is significant for diabetes, hypertension, kidney stone. Patient was seen and examined. He had the surgery yesterday. He denies any pain, no fever, vital signs stable. Patient denies nausea vomiting. White count is normal. Continue antibiotic treatment. Adjust insulin regimen to get better glucose control. - Constitutional Vitals: Temp Pulse Resp BP Pulse Ox 98.1 F 97 16 104/65 98 08/20/16 14:11 08/20/16 14:11 08/20/16 14:11 08/20/16 14:11 08/20/16 14:11 General appearance: Present: cooperative, A&O X 3, pleasant, no acute distress, obese, answers questions appropriately Internal Medicine: Result - Labs CBC & Chem 7: 08/20/16 08:46 08/20/16 08:46 Labs: Short CBC 08/20/16 Range/Units 08:46 WBC 6.4 (4.3-11.1) K/mcL Hgb 13.7 (12.9-16.9) g/dL Hct 41.0 (37.5-50.1) % Plt Count 173 (140-400) K/mcL Neutrophils # 3.3 (1.6-8.9) K/mcL BMP 08/20/16 08:46 Sodium 138 Potassium 4.3 Chloride 106 Carbon Dioxide 21 BUN 15 Creatinine 0.78 Glucose 194 H Calcium 9.3 - VTE Documentation of Mechanical Device: Venous foot pump, device Consult Discharge Plan - Plan Referrals: Eric Feliciano MARKETING INFORMATION ANALYST [Primary Care Provider] -
[2016-08-20] MEDS: Vancomycin 2,000 MG in D5% in Water 500 ML IVPB SCH (20:47)
[2016-08-20] MEDS ORDERED: Insulin DETEMIR 100 UNIT/ML X5UNITS SQ SCH (21:00)
[2016-08-21] MEDS: *HR* Heparin 5,000 UNIT/ML VIAL SQ SCH ×3 (05:31→21:10)
[2016-08-21 07:05] LABS: Basophils % 0.7 %; Eosinophils # 0.2 K/mcL (0.0-0.6); Eosinophils % 3.6 %; Hematocrit 37.7 % (37.5-50.1); Hemoglobin 12.5 g/dL (12.9-16.9); Immature Granulocytes % 0.7 % (0-4); Lymphocytes # 2.5 K/mcL (0.6-4.6); Lymphocytes % 44.3 %; Mean Corpuscular HGB Conc 33.2 g/dL (31.6-35.5); Mean Corpuscular Hemoglobin 28.9 pg (28.0-33.3); Mean Corpuscular Volume 87.3 fL (83.0-100.0); Mean Platelet Volume 12.6 fL (9.4-12.4); Monocytes # 0.5 K/mcL (0.0-1.3); Monocytes % 8.8 %; Neutrophils # 2.3 K/mcL (1.6-8.9); Platelet Count 155 K/mcL (140-400); Red Blood Count 4.32 M/mcL (4.19-5.50); Red Cell Distribution Width 13.2 % (11.5-14.5); Segmented Neutrophils % 41.9 %
[2016-08-21 07:15] LABS: BUN/Creatinine Ratio 26 (6-26); Blood Urea Nitrogen 19 mg/dL (8-26); Carbon Dioxide 22 mEq/L (19-29); Chloride 107 mEq/L (98-109); Glucose 162 mg/dL (70-99); Osmolality,Calculated 294 (280-300); Potassium 4.1 mEq/L (3.5-4.5); Sodium 139 mEq/L (136-145); eGFR For African Americans > 60 (> 60); eGFR For Non-African Americans > 60 (> 60)
[2016-08-21] MEDS: Piperacillin/Tazobactam 3.375 GM in D5% in Water (Mini-Bag+) 100 ML IVPB SCH ×2 (07:33→16:37)
[2016-08-21] MEDS: Insulin LISPRO 300 UNITS/3 ML VIAL SQ SCH ×4 (07:39→21:11)
--- NOTE | 2016-08-21 09:48 | Orthopedics Progress Note ---
Date of Encounter: 08/21/16 Time of Encounter: 09:46 Subjective Interval history: S: No complaints. Pain controlled. O: Afeb, VSS Long finger evaluated on left Wound is clean, without purulent drainage NV intact otherwise A: Post partial left long finger amputation due to infection P: Daily dressing changes and soapy washes Continue antiobiotics - cultures pending Will observe through the weekend Anticipate home tomorrow. Objective Vital signs: Vital Signs Temp Pulse Resp BP Pulse Ox 08/21/16 07:10 98.4 F 93 16 113/71 97 08/21/16 00:07 98.2 F 90 16 128/81 98 08/20/16 20:33 98.7 F 101 16 132/78 98 08/20/16 14:11 98.1 F 97 16 104/65 98 08/20/16 11:08 98.3 F 95 18 102/67 97 Intake and Output 08/20/16 08/21/16 08/21/16 23:59 07:59 15:59 Intake Total 1600 / 1600 400 / 400 Output Total 0 / 0 Balance 1600 / 1600 400 / 400 Intake: IV Fluids 600 / 600 100 / 100 Zosyn 3.375 GM In 100 / 100 100 / 100 Dextrose 5% (Minibag+) 100 ML 100 ML @ 25 mls/hr IVPB Q8HR JOSEPH Rx#: [id number] Vancocin 2,000 MG In 500 / 500 Dextrose 5% 500 ML @ 250 mls/hr IVPB Q12H JOSEPH Rx#: [id number] Oral 1000 / 1000 300 / 300 Output: Urine 0 / 0 Other: # Voids 1 1 Blood Glucose* 232 177 - Labs CBC & BMP: 08/21/16 06:10 08/21/16 06:10 Labs: Abnormal lab results Hgb 12.5 g/dL (12.9-16.9) L 08/21/16 06:10 MPV 12.6 fL (9.4-12.4) H 08/21/16 06:10 Glucose 162 mg/dL (70-99) H 08/21/16 06:10 POC Glucose 232 (58-89) H 08/20/16 20:13 Hemoglobin A1c 13.1 % (-5.6) H 08/20/16 08:46 Triglycerides 160 mg/dL (< 150) H 08/19/16 03:53 LDL Cholesterol, Calc 122 mg/dL (0-99) H 08/19/16 03:53 VLDL Cholesterol, Calc 32 mg/dL (< 31) H 08/19/16 03:53 HDL Cholesterol 36 mg/dL (40-59) L 08/19/16 03:53 Cholesterol/HDL Ratio 5.3 (0-4.9) H 08/19/16 03:53 Vancomycin Trough 7.7 mcg/mL (10-20) L 08/20/16 08:46 - VTE Documentation of Mechanical Device: Venous foot pump, device Consult Discharge Plan - Plan Referrals: Eric Feliciano, CLINICAL SUPPORT TECH [Primary Care Provider] -
[2016-08-21] MEDS: Vancomycin 2,000 MG in D5% in Water 500 ML IVPB SCH (11:39)
--- NOTE | 2016-08-21 17:05 | Internal Med Progress Note ---
Date of Encounter: 08/21/16 Time of Encounter: 09:00 - Assessment and plan (1) Gangrene Current Visit: Yes Status: Acute Assessment and plan: Patient has left hand middle finger gangrene. Hand surgery consult on case and did surgery. Continue vancomycin. Patient is at high risk because he has a gangrene need surgical intervention, and he is on vancomycin need close monitoring. (2) Hypertension Current Visit: Yes Status: Acute Assessment and plan: BP is stable, continue home medication. Qualifiers: Hypertension type: essential hypertension Qualified Code(s): I10 - Essential (primary) hypertension (3) Uncontrolled diabetes mellitus Current Visit: Yes Status: Acute Assessment and plan: Patient is not compliant with diabetes medication. Blood sugar is poorly controlled. We will continue basal and sliding scale insulin when patient in the hospital and adjust dosage to get better control. Qualifiers: Diabetes mellitus type: type 2 Diabetes mellitus complication status: with unspecified complications Diabetes mellitus web site designer insulin use: with prison use Qualified Code(s): E11.8 - Type 2 diabetes mellitus with unspecified complications; E11.65 - Type 2 diabetes mellitus with hyperglycemia; Z79.4 - senior living (current) use of insulin (4) DVT prophylaxis Current Visit: Yes Status: Acute Assessment and plan: Hypertension subcutaneously - Time Spent With Patient Greater than 35 minutes - Subjective Interval history: Patient is a 56-year-old male admitted for left hand mid finger gangrene. His past medical history is significant for diabetes, hypertension, kidney stone. Patient was seen and examined. He had the surgery post surgery day 2. He denies any pain, no fever, vital signs stable. Patient denies nausea vomiting. White count is normal. Continue antibiotic treatment. Wound culture negative will d/c zosyn, keep vanco. Adjust insulin regimen to get better glucose control. - Constitutional Vitals: Temp Pulse Resp BP Pulse Ox 97.8 F 109 16 95/63 97 08/21/16 14:54 08/21/16 14:54 08/21/16 14:54 08/21/16 14:54 08/21/16 14:54 General appearance: Present: cooperative, A&O X 3, pleasant, no acute distress, obese, answers questions appropriately - Head Head exam: Present: atraumatic, normocephalic - Eye Eye exam: Present: PERRL, conjuntiva pink, sclera anicteric Pupils: Present: PERRL - Neck Neck exam general surgery: Present: supple, trachea midline. Absent: lymphadenopathy - Respiratory Respiratory exam: Present: CTAB. Absent: accessory muscle use, rales, rhonchi, wheezes - Cardiovascular Cardiovascular exam: Present: RRR, +S1, +S2. Absent: diastolic murmur, gallop, rubs, systolic murmur - GI/Abdominal GI/Abdominal exam: Present: normal bowel sounds, soft, no peritoneal signs. Absent: distended, tenderness - Extremities Exam Extremities exam: Present: warm, radial pulses palpable and symetrical. Absent : calf tenderness, cyanotic, pedal edema Additional comments: Left mid finger S/P surgery, well-dressed. - Neurological Exam Neurological exam: Present: CN II-XII intact, oriented X3, no focal deficits. Absent: pronater drift, facial droop, speech deficit - Skin Skin exam: Present: dry, intact Internal Medicine: Result - Labs CBC & Chem 7: 08/21/16 06:10 08/21/16 06:10 Labs: Short CBC 08/21/16 Range/Units 06:10 WBC 5.6 (4.3-11.1) K/mcL Hgb 12.5 L (12.9-16.9) g/dL Hct 37.7 (37.5-50.1) % Plt Count 155 (140-400) K/mcL Neutrophils # 2.3 (1.6-8.9) K/mcL BMP 08/21/16 06:10 Sodium 139 Potassium 4.1 Chloride 107 Carbon Dioxide 22 BUN 19 Creatinine 0.73 Glucose 162 H Calcium 9.0 - VTE Documentation of Mechanical Device: Venous foot pump, device Consult Discharge Plan - Plan Referrals: Eric Feliciano PROJECT TECHNICIAN [Primary Care Provider] -
[2016-08-21] MEDS ORDERED: Insulin DETEMIR 100 UNIT/ML X5UNITS SQ SCH (21:00)
[2016-08-22] MEDS ORDERED: Vancomycin 2,000 MG in D5% in Water 500 ML IVPB SCH (01:00)
[2016-08-22] MEDS: *HR* Heparin 5,000 UNIT/ML VIAL SQ SCH (05:11)
[2016-08-22 06:37] VITALS: BP 126/77
[2016-08-22] MEDS: Insulin LISPRO 300 UNITS/3 ML VIAL SQ SCH (07:42)
--- NOTE | 2016-08-22 08:32 | Discharge Summary ---
Date of Encounter: 08/22/16 Time of Encounter: 08:00 - Discharge Diagnosis (1) Gangrene Priority: Primary Status: Acute (2) Hypertension Priority: Secondary Status: Acute Qualifiers: Hypertension type: essential hypertension Qualified Code(s): I10 - Essential (primary) hypertension (3) Uncontrolled diabetes mellitus Priority: Primary Status: Acute Qualifiers: Diabetes mellitus type: type 2 Diabetes mellitus complication status: with unspecified complications Diabetes mellitus terminal gauger supervisor insulin use: with terminal gauger supervisor use Qualified Code(s): E11.8 - Type 2 diabetes mellitus with unspecified complications; E11.65 - Type 2 diabetes mellitus with hyperglycemia; Z79.4 - buttermaker (current) use of insulin (4) DVT prophylaxis Priority: Secondary Status: Acute - Discharge Medications Prescriptions: Insulin DETEMIR [Levemir] 25 unit SQ HS 30 Days Sulfamethoxazole/Trimeth DS [Bactrim Ds] 1 each PO BID #14 tablet Home Medications: Atorvastatin Calcium [Lipitor] 20 mg PO DAILY 08/18/16 [History] Lisinopril [Zestril] 5 mg PO DAILY 08/18/16 [History] Metformin HCl [Glucophage] 1,000 mg PO BID 08/18/16 [History] Insulin DETEMIR [Levemir] 25 unit SQ HS 30 Days 08/22/16 [Rx] Sulfamethoxazole/Trimeth DS [Bactrim Ds] 1 each PO BID #14 tablet 08/22/16 [Rx] Allergies/Adverse Reactions: Allergies No Known Allergies Allergy (Verified 08/18/16 20:01) Date of admission: 08/19/16 02:59 Primary care physician: Eric Feliciano CNP Consults: 08/19/16 03:14 Consult to Solder Technician [CONS] Routine Comment: Discharging clinician: Rafita Espino Anticipated date of discharge: 08/22/16 - Patient Status Disposition: Home, Self-Care Condition: Good Functional capacity at discharge: independent ambulation Overall status at discharge: patient is back to baseline - Discharge Instructions Follow Up With: Mirtha Chaudhry PAC [Physician Procedures Analyst] - 08/26/16 1:15 pm Eric Feliciano CNP [Primary Care Provider] - Additional Instructions: TAKE ALL MEDICATIONS PRESCRIBED KEEP ALL APPOINTMENTS IF FEVER, CHILLS, DRAINAGE, SHAKES, ODOR CALL DR. POTTS'S OFFICE - Diet and Activity Activity: increase activity as tolerated Diet: diabetic diet Interval History: Mr. Hwang is a 56 year old male with past medical history of hypertension and uncontrolled diabetes who was sent to the ER by primary physician for evaluation of worsening left middle finger ulceration. 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 He reports of following with his primary MANAGER OF PATIENT who noted him to be consistently hyperglycemic and was noted to have hemoglobin A1c of 13.5 and was recently started on metformin and insulin. He was further transferred to the ER for better control of his diabetes along with surgical consultation with Dr. Potts for possible surgical resection of the left middle finger. Upon arrival to the ER patient is asymptomatic and is noted to have hyperglycemia. He reports starting his insulin and metformin regimen few days ago. He denies any pain in the finger however it appears to be necrotic. At this time he is resting comfortably in bed denies any pain, headache, chest pain, shortness of breath, abdominal pain, nausea, vomiting, fever, or chills. Hospital course: Mr. Hwang is a 56 year old male admitted for left middle finger gangrene. He was treated with iv antibiotics. Orthopedic consult was called, and saw patient. Patient had left middle finger amputation done by orthopedic. After surgery, patient recovers well, only with minimal pain. Discussed with orthopedic consult Dr Potts, will discharge patient home today with by mouth Bactrim DS, he will follow with orthopedic as outpatient. I saw and examined the patient today, he is awake alert, in no pain. No fever, vital signs stable. I told him we have increased his insulin Levemir from 10 to 25 units per day, he will be discharged on 25 units of Levemir daily at bedtime and continue metformin 1000 mg by mouth twice a day. He will check his fingerstick by himself and adjust insulin dose. He knows the signs of hypoglycemia and always keep food with him. He will follow up with his PCP as outpatient to get better glucose control. - Time Spent with Patient Total time spent providing and/or coordinating discharge services: - Constitutional Vitals: Temp Pulse Resp BP Pulse Ox 97.7 F 93 18 126/77 95 08/22/16 06:36 08/22/16 06:36 08/22/16 06:36 08/22/16 06:36 08/22/16 06:36 General appearance: Present: cooperative, A&O X 3, pleasant, no acute distress, obese, answers questions appropriately - Head Head exam: Present: atraumatic, normocephalic - Eye Eye exam: Present: PERRL, conjuntiva pink, sclera anicteric Pupils: Present: PERRL - Neck Neck exam general surgery: Present: supple, trachea midline. Absent: lymphadenopathy - Respiratory Respiratory exam: Present: CTAB. Absent: accessory muscle use, rales, rhonchi, wheezes - Cardiovascular Cardiovascular exam: Present: RRR, +S1, +S2. Absent: diastolic murmur, gallop, rubs, systolic murmur - GI/Abdominal GI/Abdominal exam: Present: normal bowel sounds, soft, no peritoneal signs. Absent: distended, tenderness - Extremities Exam Extremities exam: Present: warm, radial pulses palpable and symetrical. Absent : calf tenderness, cyanotic, pedal edema Additional comments: Left middle finger S/P amputation, well dressed. - Neurological Exam Neurological exam: Present: CN II-XII intact, oriented X3, no focal deficits. Absent: pronater drift, facial droop, speech deficit - Skin Skin exam: Present: dry, intact - VTE Documentation of Mechanical Device: Venous foot pump, device
[2016-08-22] MEDS ORDERED: Sulfamethoxazole/Trimeth DS 1 EACH TABLET PO SCH (09:00)
[2016-08-22] MEDS ORDERED: Aminoglycoside Consult 1 EACH MC ONE (11:14)
--- NOTE | 2016-08-24 17:26 | Operative Note ---
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 Anesthesia: GETA Surgeon: Remi Potts Estimated blood loss (cc): 3 Tourniquet Time (Minutes): 10 Specimen: Cultures and pathology Condition: stable Disposition: PACU Procedure in Detail: Indications: Patient is a 56-year-old [id number] gentleman who sustained a puncture injury to his left long finger-07/07/2016. The patient was then untreated diabetic. He presented with necrosis of the left long finger. This was significant soft tissue loss. Repeat x-rays in the emergency room showed osteomyelitis of the distal phalanx, and part of the middle phalanx distally. Procedure: The patient had received IV antibiotics on the floor. He was brought into the operating room and placed on the OR table in supine position with the affected extremity on a hand table. A sign in was performed. The patient underwent general anesthesia, a tourniquet was placed on the left arm close to the axilla. The left extremity was prepped and draped in usual sterile fashion. A timeout was performed. The patient is a large flap necrotic skin on the volar surface from the middle of the P2 segment down to the middle of a P3 segment. This was sharply excised , appeared to be mobile wet gangrene of the tissue deeper down. I continued debriding the wound, and copiously irrigated with normal saline. The flexor tendon sheath was exposed and appeared to be chronically infected as well as the radial sided neurovascular bundle. This soft tissue loss was too extensive , and given the fact that he had the osteomyelitis, I decided to commit to an amputation. Patient also had some ulcerations forming on the dorsum of the digit distally. A sharp fishmouth incision was made on the long finger, with the proximal end of the incision at the level of the base of P2, and the distal flaps just proximal to the DIP joint. Sharply dissected down to the bone. A bone cutter was then used to cut through the shaft of the middle phalanx. Cultures were taken of the exposed bone. Separate cultures were also taken of the amputated digit. The amputation was sent off as a pathology specimen. No pus was seen within the flexed and sheath system. The flexor digitorum profundus tendon was pulled on and and a darkish yellow this discoloration but there is no surrounding fluid. The flexor digitorum superficialis insertion points were still intact. This amputation level was at the base of the middle phalanx, just distal to the insertion of the flexor digitorum superficialis slips. The exposed bone edge was cut back on again with a rongeur, followed by a rasp. The neurovascular bundles were dissected out, pulled on, cauterized with the bipolar and then cut allowing them to retract into the soft tissue. The tourniquet was then but then, irrigating the wound and obtained hemostasis with bipolar cautery. The volar skin flap was then brought up and closed dorsally with a 5-0 nylon vertical mattress suture. Followed by simple sutures , closing the wound, making sure there were no dog-ears, excising as necessary. The radial and ulna proximal colon was left open, in the past slip of the Brian drain across, protruding from both ends. The tip appeared well perfused. The patient was then given a digital block at the base of the left long finger using 5 mL of 0.5% Marcaine mixed with 5 mL of 2% lidocaine. Fluffy sterile dressings were applied, followed by a light Coban dressing. The patient was extubated and taken to the recovery room in stable condition. The Gordon drain was pulled in 1 day and he will start soap and water washes. He will continue on his IV antibiotics.
== END 2016-08-22 11:15 | disposition home or self-care (01) | DRG 988 ==
LOC: EMEROO 19:43 → 3NENU 19:43
PROVIDERS: ADMIT Nurse Practitioner Family; ATTEND Internal Medicine